=== PATIENT | female | born 1995 | race Caucasian/White ===

== ENCOUNTER 2017-08-25 12:49 | Emergency (ER) | payer OTHER ==
[~2017-08-25] VITALS: Ht 170.2 cm; Wt 54.4 kg
[~2017-08-25 12:49] MED LIST: CIPRO500 MG PO; IBUPROFEN 400400 M1 PO; IBUPROFEN 600600 M1 PO; NOHOMEMEDICATIONS; PREDNISONE 10 M10 MG PO; XANAX 0.25 MG0.25 MG PO; ZOFRAN ODT4 MG PO
[2017-08-25 13:11] LABS: URINE BILIRUBIN NEGATIVE (Negative); URINE BLOOD NEGATIVE (Negative); URINE CLARITY CLEAR; URINE COLOR YELLOW; URINE GLUCOSE-RANDOM NEGATIVE (Negative); URINE KETONES NEGATIVE (Negative); URINE LEUKOCYTES-REFLEX NEGATIVE (Negative); URINE NITRITE-REFLEX NEGATIVE (Negative); URINE PROTEIN NEGATIVE (Negative); URINE SPECIFIC GRAVITY >= 1.030 (1.005-1.030); URINE UROBILINOGEN 0.2 E.U./dl (0.2-1.0)
[2017-08-25 14:19] VITALS: BP 100/52
== END 2017-08-25 14:20 | disposition home or self-care (01) ==
LOC: M.ERS 12:49
PROVIDERS: Nurse Practitioner Psychiatric/Mental Health
DX: A56.8 Sexually transmitted chlamydial infection of other sites (principal); Z22.4 Carrier of infections with a predominantly sexual mode of transmission; R10.9 Unspecified abdominal pain

== ENCOUNTER 2018-12-23 20:03 | Emergency (ER) | payer OTHER ==
[~2018-12-23] VITALS: Ht 172.7 cm; Wt 58.1 kg
[2018-12-23 20:18] VITALS: BP 119/89
[2018-12-23] MEDS ORDERED: ZOFRAN ODT4 MG PO (20:26)
[2018-12-23] MEDS ORDERED: ZPAK PO (20:26)
== END 2018-12-23 20:48 | disposition home or self-care (01) ==
LOC: M.ERS 20:03
DX: J40 Bronchitis, not specified as acute or chronic (principal)

== ENCOUNTER 2019-01-12 21:30 | Emergency (ER) | payer OTHER ==
[~2019-01-12] VITALS: Ht 170.2 cm; Wt 58.1 kg
[~2019-01-12 21:30] MED LIST changes: +ZPAK PO
[2019-01-12] MEDS ORDERED: AMOXICILLIN875 MG PO (22:14)
[2019-01-12 22:28] VITALS: BP 117/72
== END 2019-01-12 22:28 | disposition home or self-care (01) ==
LOC: M.ERS 21:30
DX: J02.9 Acute pharyngitis, unspecified (principal); R11.10 Vomiting, unspecified

== ENCOUNTER 2019-01-18 15:30 | Emergency (ER) | payer OTHER ==
[~2019-01-18] VITALS: Ht 172.7 cm; Wt 57.6 kg
[~2019-01-18 15:30] MED LIST changes: +AMOXICILLIN875 MG PO
[2019-01-18 15:42] LABS: URINE BILIRUBIN NEGATIVE (Negative); URINE BLOOD 1+ (Negative); URINE CLARITY CLEAR; URINE COLOR YELLOW; URINE GLUCOSE-RANDOM NEGATIVE (Negative); URINE KETONES NEGATIVE (Negative); URINE LEUKOCYTES-REFLEX NEGATIVE (Negative); URINE NITRITE-REFLEX NEGATIVE (Negative); URINE PROTEIN NEGATIVE (Negative); URINE SPECIFIC GRAVITY 1.025 (1.005-1.030)
[2019-01-18 15:50] LABS: SQUAMOUS >10 Many /LPF (0-3); URINE WBC-REFLEX None Seen /HPF (0-5)
[2019-01-18 15:51] LABS: BACTERIA-REFLEX None Seen /HPF (None Seen); CASTS None Seen /LPF (None Seen); CRYSTALS None Seen /LPF (None Seen); MUCUS 0-3 Light strn/LPF (None Seen); URINE RBC 3-10 Few /HPF (0-2)
[2019-01-18 16:47] VITALS: BP 125/68
== END 2019-01-18 16:48 | disposition left against medical advice (07) ==
LOC: M.ERS 15:30
PROVIDERS: Physician Assistant
DX: N93.9 Abnormal uterine and vaginal bleeding, unspecified (principal); N89.8 Other specified noninflammatory disorders of vagina; R10.32 Left lower quadrant pain; R10.31 Right lower quadrant pain

== ENCOUNTER 2019-02-08 13:14 | Emergency (ER) | payer OTHER ==
[~2019-02-08] VITALS: Ht 170.2 cm; Wt 58.1 kg
[2019-02-08] MEDS ORDERED: TESSALON PERLE100 MG PO (14:53)
[2019-02-08] MEDS ORDERED: MEDROLDOSEPACK PO (14:53)
[2019-02-08] MEDS ORDERED: PROAIR HFA8.5 GM INH (14:53)
[2019-02-08] MEDS ORDERED: ZPAK PO (14:53)
[2019-02-08 15:12] VITALS: BP 100/60
== END 2019-02-08 15:14 | disposition home or self-care (01) ==
LOC: M.ERS 13:14
DX: J20.9 Acute bronchitis, unspecified (principal)

== ENCOUNTER 2019-04-18 18:37 | Emergency (ER) | payer OTHER ==
[~2019-04-18] VITALS: Ht 170.2 cm; Wt 59.9 kg
[~2019-04-18 18:37] MED LIST changes: +MEDROLDOSEPACK PO; +PROAIR HFA8.5 GM INH; +TESSALON PERLE100 MG PO
[2019-04-18 19:14] LABS: URINE BILIRUBIN NEGATIVE (Negative); URINE BLOOD NEGATIVE (Negative); URINE CLARITY CLEAR; URINE COLOR YELLOW; URINE GLUCOSE-RANDOM NEGATIVE (Negative); URINE KETONES NEGATIVE (Negative); URINE LEUKOCYTES-REFLEX NEGATIVE (Negative); URINE NITRITE-REFLEX NEGATIVE (Negative); URINE PROTEIN NEGATIVE (Negative); URINE SPECIFIC GRAVITY 1.015 (1.005-1.030); URINE UROBILINOGEN 0.2 E.U./dl (0.2-1.0)
[2019-04-18] MEDS ORDERED: ENBRACE HR SOF1 EACH PO (19:23)
[2019-04-18 19:27] VITALS: BP 111/74
== END 2019-04-18 19:28 | disposition home or self-care (01) ==
LOC: M.ERS 18:37
PROVIDERS: Nurse Practitioner Family
DX: O26.891 Other specified pregnancy related conditions, first trimester (principal); Z3A.01 Less than 8 weeks gestation of pregnancy

== ENCOUNTER 2019-05-06 20:15 | Emergency (ER) | payer MEDICAID ==
[~2019-05-06] VITALS: Ht 170.2 cm; Wt 58.1 kg
[~2019-05-06 20:15] MED LIST changes: +ENBRACE HR SOF1 EACH PO
[2019-05-06 20:19] VITALS: BP 123/67
[2019-05-06] MEDS ORDERED: AMOXICILLIN875 MG PO (20:34)
== END 2019-05-06 20:40 | disposition home or self-care (01) ==
LOC: M.ERS 20:15
DX: O99.511 Diseases of the respiratory system complicating pregnancy, first trimester (principal); J06.9 Acute upper respiratory infection, unspecified; J02.9 Acute pharyngitis, unspecified; Z3A.08 8 weeks gestation of pregnancy

== ENCOUNTER 2020-02-05 20:29 | Emergency (ER) | payer OTHER, MEDICAID ==
[~2020-02-05] VITALS: Ht 170.2 cm; Wt 61.7 kg
[2020-02-05] MEDS ORDERED: HYDROCODON-ACE1 EAC7 PO (22:26)
[2020-02-05] MEDS ORDERED: PENICILLIN V P500 MG PO (22:26)
[2020-02-05 22:42] VITALS: BP 120/80
== END 2020-02-05 22:43 | disposition home or self-care (01) ==
LOC: M.ERS 20:29
DX: K04.7 Periapical abscess without sinus (principal); K03.81 Cracked tooth

== ENCOUNTER 2020-04-10 11:22 | Emergency (ER) | payer OTHER, MEDICAID ==
[~2020-04-10] VITALS: Ht 170.2 cm; Wt 58.1 kg
[~2020-04-10 11:22] MED LIST changes: +HYDROCODON-ACE1 EAC7 PO; +PENICILLIN V P500 MG PO
[2020-04-10] MEDS ORDERED: NAPROSYN500 MG PO (13:19)
[2020-04-10 13:29] VITALS: BP 108/72
== END 2020-04-10 13:30 | disposition home or self-care (01) ==
LOC: M.ERS 11:22
DX: S70.01XA Contusion of right hip, initial encounter (principal); M25.561 Pain in right knee; W10.8XXA Fall (on) (from) other stairs and steps, initial encounter; Y93.89 Activity, other specified; Y92.89 Other specified places as the place of occurrence of the external cause; Y99.8 Other external cause status